=== PATIENT | male | born 1950 | race Caucasian/White ===

== ENCOUNTER 2022-07-29 13:28 | Emergency (ER) | payer BC, SELFPAY ==
[2022-07-29 13:30] VITALS: BP 158/69; PULSE 88; RESP 16; TEMP 36.3; O2SAT 95
--- NOTE | 2022-07-29 15:44 | ED.GENADULT ---
HPI - General Adult General Chief complaint: Back Pain/Injury Stated complaint: constipation Time Seen by Provider: 07/29/22 13:52 History of Present Illness HPI narrative: Patient states that he generally has pretty regular bowel movements, but his last bowel movement was 3 days ago and for the past day he has been having issues going he has been straining, does endorse a feeling of pressure in his lower back and abdomen when he straining, otherwise no nausea or vomiting. Colonoscopy 8 years ago was normal. No weight loss, fevers or chills. No dysuria Related Data Home Medications Medication Instructions Recorded Confirmed amlodipine 5 mg-benazepril 40 mg 1 cap PO DAILY 12/28/21 12/28/21 capsule aspirin 81 mg tablet,delayed 81 mg PO DAILY 12/28/21 12/28/21 release atorvastatin 10 mg tablet 10 mg PO DAILY 12/28/21 12/28/21 finasteride 5 mg tablet 5 mg PO DAILY 12/28/21 12/28/21 furosemide 20 mg tablet 10 mg PO QAM 12/28/21 12/28/21 multivitamin 1 tablet PO DAILY 12/28/21 12/28/21 potassium chloride 10 mEq 10 meq PO DAILY 12/28/21 12/28/21 tablet,extended release (Klor-Con) vilazodone 20 mg tablet 20 mg PO DAILY 12/28/21 12/28/21 zolpidem 5 mg tablet 5 mg PO QHS PRN 12/28/21 12/28/21 Allergies Allergy/AdvReac Type Severity Reaction Status Date / Time Penicillins Allergy Mild Unverified 02/01/22 09:58 pollen extracts Allergy Unknown unknown Verified 02/01/22 09:58 Review of Systems Review of Systems: CONST: No fever. HEENT: No sore throat C/V: No chest pain RESP: No cough GI: Reports constipation : No dysuria. M/S: No joint pain. SKIN: No rash. NEURO: [No headache or focal numbness or weakness] PSYCH: [No depression] [facility] Past Medical History Medical History History of stress test Sleep apnea Family History Family History Unknown Heart disease Social History Social History Smoking status: Never smoker Exam Narrative: EXAMINATION OF ORGAN SYSTEMS/BODY AREAS: Constitutional: Vital signs per nursing GENERAL:[No acute distress, non-toxic appearing.] HEAD: Normal with no signs of head trauma. EYES: EOMI, conjunctiva normal ENT: Hearing grossly intact LUNGS: Nonlabored breathing. HEART: [Regular rate and rhythm] ABD: [Soft], nondistended, not [tender to palpation] EXT: Normal range of motion. Ambulating with normal steady gait. RECTAL: No hard stool palpated in rectal vault; no tenderness or gross blood SKIN: [No rashes or lesions.] NEURO: [Alert and oriented x 3. No gross focal sensory or strength deficits.] PSYCH: Normal affect Course Vital Signs Vital signs: Vital Signs Temperature 97.3 F L 07/29/22 13:30 Pulse Rate 88 07/29/22 13:30 Respiratory Rate 16 07/29/22 13:30 Blood Pressure 158/69 H 07/29/22 13:30 Pulse Oximetry 95 07/29/22 13:30 Temperature 97.3 F L 07/29/22 13:30 Pulse Rate 88 07/29/22 13:30 Respiratory Rate 16 07/29/22 13:30 Blood Pressure 158/69 H 07/29/22 13:30 Pulse Oximetry 95 07/29/22 13:30 Medical Decision Making MDM Narrative Medical decision making narrative: 71-year-old male presents with 3 days of constipation, vital signs normal and his abdomen is soft, nontender to palpation, I discussed with the patient that as he has no prior abdominal surgery, nausea or vomiting nor abdominal tenderness, I have lower concern for SBO, he has no dysuria so less concern for UTI, and doubt any other emergent surgical emergency without tenderness. I did offer renal disimpaction here, however on rectal exam there is no stool in the vault to evacuate. I did offer here enema, but when sure decision-making with the patient he would prefer to try to take the prescriptions at home and see if he can go on his own, and I feel this is absolutely reasonable. He is stable for discharge home at th
== END 2022-07-29 14:43 | disposition home or self-care (01) ==
LOC: ANHED 14:32
PROVIDERS: Emergency Provider Emergency Medicine
DX: K59.00 Constipation, unspecified (principal); G47.30 Sleep apnea, unspecified
CPT/HCPCS: 99283